=== PATIENT | male | born 1990 | race Caucasian/White ===

== ENCOUNTER 2020-09-19 06:33 | Emergency (ER) | payer MEDICAID, SELFPAY ==
[~2020-09-19] VITALS: Ht 165.1 cm; Wt 63.5 kg
[2020-09-19 06:49] VITALS: BP_SYST 139
[2020-09-19] MEDS ORDERED: VANCOMYCIN HCL 1,000 MG in NS 250 ML IV ONE (07:00)
[2020-09-19] MEDS ORDERED: VANCOMYCIN HCL 1000 MG/VIAL IV ONE (07:20)
[2020-09-19] MEDS ORDERED: cefTRIAXone 2 GM VIAL ONE (07:20)
[2020-09-19 07:29] LABS: BASOPHILS % (AUTO) 0.3 % (0.0-2.0); EOSINOPHILS # (AUTO) 0.3 K/uL (0.0-0.4); EOSINOPHILS % (AUTO) 2.3 % (0.0-4.0); HEMATOCRIT 35.3 % (36-54); HEMOGLOBIN 11.6 g/dL (14.0-18.0); LYMPHOCYTES # (AUTO) 1.4 K/uL (1.0-5.5); LYMPHOCYTES % (AUTO) 13.4 % (20.5-51.5); MEAN CORPUSCULAR HEMOGLOBIN 25 pg (27-31); MEAN CORPUSCULAR HGB CONC 33 % (32-36); MEAN CORPUSCULAR VOLUME 77 fL (79.0-98.0); MONOCYTES # (AUTO) 0.8 K/uL (0.0-1.0); MONOCYTES % (AUTO) 7.5 % (1.7-9.3); NEUTROPHILS # (AUTO) 8.3 K/uL (1.8-7.7); NEUTROPHILS % (AUTO) 76.5 % (40.0-70.0); PLATELET COUNT (AUTO) 265 K/uL (130-430); RED BLOOD CELL COUNT(AUTO) 4.62 MIL/uL (4.2-6.2); RED CELL DISTRIBUTION WIDTH 14.9 % (9.0-15.0); WHITE BLOOD COUNT (AUTO) 10.8 K/uL (4.8-10.8)
[2020-09-19 07:39] LABS: C-REACTIVE PROTEIN QUANT 7.2 mg/dL (0-0.5); CALCIUM 8.8 mg/dL (8.4-11.0); CREATININE 0.95 mg/dL (0.55-1.30); POTASSIUM 3.4 mmol/L (3.5-5.1)
[2020-09-19] MEDS ORDERED: NACL 0.9% 1,000 ML IV ONE (08:00)
[2020-09-19] MEDS ORDERED: CEPH500C2 PO (08:15)
[2020-09-19] MEDS ORDERED: SULF1TAB47 PO (08:15)
[2020-09-19 08:19] LABS: ERYTHROCYTE SEDIMENTATION RATE 76 MM/HR (0-15)
[2020-09-19] MEDS ORDERED: LIDOCAINE/EPI 1% 1:100000 20 ML VIAL INJ ONE (08:30)
[2020-09-19 09:22] VITALS: BP_SYST 139
== END 2020-09-19 09:22 | disposition left against medical advice (07) ==
LOC: SED 06:33
DX: L02.511 Cutaneous abscess of right hand (principal); L03.113 Cellulitis of right upper limb; F11.20 Opioid dependence, uncomplicated; Z79.899 Other long term (current) drug therapy
CPT/HCPCS: 26010; 36415; 73130; 80048; 85025; 85651; 86140; 86701; 86702; 87040; 96365; 96368; 99284; J0696; J3370; J7030

== ENCOUNTER 2021-05-13 20:40 | Emergency (ER) | payer MEDICAID, SELFPAY ==
[~2021-05-13] VITALS: Ht 165.1 cm; Wt 65.8 kg
[2021-05-13 20:40] VITALS: BP_SYST 129
[~2021-05-13 20:40] MED LIST: CEPH-548 PO; SULF1TAB47 PO
[2021-05-13] MEDS ORDERED: NALOXONE HCL 2 MG/2 ML SYR (NARCAN) IM ONE (21:00)
[2021-05-13 21:23] LABS: BASOPHILS % (AUTO) 0.4 % (0.0-2.0); EOSINOPHILS # (AUTO) 0.1 K/uL (0.0-0.4); EOSINOPHILS % (AUTO) 2.1 % (0.0-4.0); HEMATOCRIT 40.3 % (36-54); HEMOGLOBIN 13.3 g/dL (14.0-18.0); LYMPHOCYTES # (AUTO) 2.1 K/uL (1.0-5.5); LYMPHOCYTES % (AUTO) 43.1 % (20.5-51.5); MEAN CORPUSCULAR HEMOGLOBIN 27 pg (27-31); MEAN CORPUSCULAR HGB CONC 33 % (32-36); MEAN CORPUSCULAR VOLUME 80 fL (79.0-98.0); MONOCYTES # (AUTO) 0.5 K/uL (0.0-1.0); MONOCYTES % (AUTO) 9.5 % (1.7-9.3); NEUTROPHILS # (AUTO) 2.1 K/uL (1.8-7.7); NEUTROPHILS % (AUTO) 44.9 % (40.0-70.0); PLATELET COUNT (AUTO) 153 K/uL (130-430); RED BLOOD CELL COUNT(AUTO) 5.04 MIL/uL (4.2-6.2); RED CELL DISTRIBUTION WIDTH 14.2 % (9.0-15.0); WHITE BLOOD COUNT (AUTO) 4.8 K/uL (4.8-10.8)
[2021-05-13 22:07] VITALS: BP_SYST 129
[2021-05-13 22:25] LABS: BARBITURATE, URINE NEGATIVE (NEG <=200); BENZODIAZEPINE, URINE NEGATIVE (NEG <=150); CANNABINOID, URINE POSITIVE (NEG <=50); COCAINE, URINE NEGATIVE (NEG <=150); METHAMPHETAMINES SCREEN,URINE POSITIVE (NEG <=500); OPIATE, URINE POSITIVE (NEG <=100); PHENCYCLIDINE SCREEN,URINE NEGATIVE (NEG <=25); UR TRICYCLIC ANTIDEPRESSANTS NEGATIVE (NEG <=300); URINE AMPHETAMINE POSITIVE (NEG <=500); URINE METHADONE NEGATIVE (NEG <=200); URINE OXYCODONE SCREEN NEGATIVE (NEG <=100); URINE PROPOXYPHENE SCREEN NEGATIVE (NEG <=300)
[2021-05-13 22:26] LABS: CALCIUM 8.1 mg/dL (8.4-11.0); CREATININE 1.05 mg/dL (0.55-1.30); POTASSIUM 3.6 mmol/L (3.5-5.1)
[2021-05-13 22:31] LABS: ALBUMIN 3.5 g/dL (3.4-4.8); TOTAL BILIRUBIN 0.4 mg/dL (0.0-1.0)
== END 2021-05-13 22:07 ==
LOC: SED 20:40
DX: T40.1X3A Poisoning by heroin, assault, initial encounter (principal); F11.10 Opioid abuse, uncomplicated; R53.83 Other fatigue; Z79.899 Other long term (current) drug therapy; Y92.89 Other specified places as the place of occurrence of the external cause
CPT/HCPCS: 36415; 80053; 80307; 83605; 85025; 99283